=== PATIENT | female | born 1985 | race Caucasian/White ===

== ENCOUNTER 2016-07-19 17:04 | Emergency (ER) | payer SELFPAY ==
[2016-07-19 17:18] VITALS: BMI 22.2
[2016-07-19 17:21] VITALS: TEMP 98.8; O2SAT 99
[2016-07-19 18:04] LABS: URINE BILIRUBIN NEGATIVE (NEGATIVE); URINE BLOOD NEGATIVE (NEGATIVE); URINE GLUCOSE (UA) NEGATIVE (NEGATIVE); URINE KETONE NEGATIVE (NEGATIVE); URINE LEUKOCYTE ESTERASE NEGATIVE Leu/uL (NEGATIVE); URINE PROTEIN NEGATIVE mg/dL (<30 mg/dL); URINE UROBILINOGEN 0.2 E.U./dL (<1 E.U./dL)
[2016-07-19 18:05] LABS: URINE APPEARANCE CLEAR (CLEAR); URINE COLOR STRAW (YELLOW)
--- NOTE | 2016-07-19 18:10 | ED PDOC ---
Arrival/HPI - General Historian: Patient - General Chief Complaint: Abdominal Pain Time Seen by Provider: 07/19/16 17:31 - History of Present Illness Narrative History of Present Illness (Text): 07/19/16 18:04 31yo female who present with complaint of suprapubic abdominal pain. States it was epigastric pain yesterday and then it became suprapubic today. she denies nausea, vomiting, diarreha, constaiption, dysuria, fever, chills, heamturia, any other complaint. (Sarahi Holcomb A) Past Medical History - Provider Review Nursing Documentation Reviewed: Yes - Travel History If Yes, travel location?: [facility] - Past Medical History Past Medical History: No Previous - Psychiatric Hx Substance Use: No - Past Surgical History Past Surgical History: No Previous - Surgical History Hx Section: Yes - Suicidal Assessment Feels Threatened In Home Enviroment: No Family/Social History - Physician Review Nursing Documentation Reviewed: Yes Family/Social History: Unknown Family HX Smoking Status: Never Smoked Hx Alcohol Use: No Hx Substance Use: No Hx Substance Use Treatment: No Allergies/Home Meds Allergies/Adverse Reactions: Allergies No Known Allergies Allergy (Verified 07/19/16 17:21) Home Medications: Home Meds Medication Instructions Recorded Confirmed No Known Home Med 07/19/16 07/19/16 Review of Systems - Physician Review All systems were reviewed & negative as marked: Yes - Review of Systems Constitutional: Normal Eyes: Normal ENT: Normal Respiratory: Normal Cardiovascular: Normal Gastrointestinal: Abdominal Pain. absent: Constipation, Diarrhea, Nausea, Vomiting Genitourinary Female: Normal Musculoskeletal: Normal Skin: Normal Neurological: Normal Endocrine: Normal Hemo/Lymphatic: Normal Psychiatric: Normal Physical Exam Vital Signs Reviewed: Yes Temperature: Afebrile Blood Pressure: Normal Pulse: Regular Respiratory Rate: Normal Appearance: Positive for: Well-Appearing, Non-Toxic, Comfortable Pain Distress: None Mental Status: Positive for: Alert and Oriented X 3 - Systems Exam Head: Present: Atraumatic, Normocephalic Pupils: Present: PERRL Extroacular Muscles: Present: EOMI Conjunctiva: Present: Normal Mouth: Present: Moist Mucous Membranes Neck: Present: Normal Range of Motion Respiratory/Chest: Present: Clear to Auscultation, Good Air Exchange. No: Respiratory Distress, Accessory Muscle Use Cardiovascular: Present: Regular Rate and Rhythm, Normal S1, S2. No: Murmurs Abdomen: Present: Tenderness (Suprapubic tenderness), Normal Bowel Sounds. No: Distention, Peritoneal Signs, Rebound, Guarding, McBurney's Point Tender, Rovsing's Sign Present Back: Present: Normal Inspection Upper Extremity: Present: Normal Inspection. No: Cyanosis, Edema Lower Extremity: Present: Normal Inspection. No: Edema Neurological: Present: GCS=15, CN II-XII Intact, Speech Normal Skin: Present: Warm, Dry, Normal Color. No: Rashes Psychiatric: Present: Alert, Oriented x 3, Normal Insight, Normal Concentration Medical Decision Making ED Course and Treatment: 07/22/16 13:02 Lab was reviewed with mild leukocytosis . Abdominal CT was negative, Result was DW the pt and she was DC home . Referred to a GI. Advised TRT ED for any new or worsening symptoms (Sarahi Holcomb) - Lab Interpretations Lab Results: 07/19/16 18:20 07/19/16 18:20 Lab Results 07/19/16 18:20: Sodium 140, Potassium 3.8, Chloride 102, Carbon Dioxide 27, Anion Gap 15, BUN 9, Creatinine 0.7, Est GFR ( Amer) > 60, Est GFR (Non- Af Amer) > 60, Random Glucose 90, Calcium 9.1, Total Bilirubin 0.6, AST 22, ALT 36, Alkaline Phosphatase 53, Total Protein 7.9, Albumin 4.1, Globulin 3.8, Albumin/Globulin Ratio 1.1, Lipase 143 07/19/16 18:20: PT 10.3, INR 0.95, APTT 29.6 07/19/16 18:20: WBC 12.3 H, RBC 4.13, Hgb 11.9 L, Hct 36.1, MCV 87.4, MCH 28.8, MCHC 33.0, RDW 14.3, Plt Count 313, MPV 9.0, Gran % 65.0, Lymph % (Auto) 27.3, [place] % (Auto) 6.4 H, Eos % (Auto) 1.1 L, Baso % (Auto) 0.2, Gran # 8.01 H, Lymph # 3.4, [place] # 0.8 H, Eos # 0.1, Baso # 0.02 07/19/16 17:54: Urine Color Straw, Urine Appearance Clear, Urine pH 7.0, Ur Specific [place] 1.010, Urine Protein Negative, Urine Glucose (UA) Negative, Urine Ketones Negative, Urine Blood Negative, Urine Nitrate Negative, Urine Bilirubin Negative, Urine Urobilinogen 0.2, Ur Leukocyte Esterase Negative - RAD Interpretation Radiology Orders: 07/19/16 18:56 ABD & PELVIS W/O PO OR IV CONT [CT] Stat - Medication Orders Current Medication Orders: Discontinued Medications Famotidine (Pepcid) 20 mg IVP STAT STA Stop: 07/19/16 18:13 Last Admin: 07/19/16 18:28 Dose: 20 mg Sodium Chloride (Sodium Chloride 0.9%) 1,000 mls @ 1,000 mls/hr IV .Q1H STA Stop: 07/19/16 19:11 Last Admin: 07/19/16 18:28 Dose: 1,000 mls/hr Disposition/Present on Arrival - Present on Arrival Any Indicators Present on Arrival: No History of DVT/PE: No History of Uncontrolled Diabetes: No Urinary Catheter: No History of Decub. Ulcer: No History Surgical Site Infection Following: None - Disposition Have Diagnosis and Disposition been Completed?: Yes Disposition Time: 21:30 Patient Plan: Discharge - Disposition Diagnosis: Abdominal pain Disposition: HOME/ ROUTINE Condition: STABLE Referrals: PCP,NO [Primary Care Provider] - Follow up with primary
[2016-07-19] MEDS ORDERED: Sodium Chloride 0.9% 1,000 ML IV STA (18:12)
[2016-07-19 18:35] LABS: ADD MANUAL DIFF? NO
[2016-07-19 18:46] LABS: ALB/GLOB RATIO 1.1 (1.1-1.8); ALKALINE PHOSPHATASE 53 U/L (38-133); ALT/SGPT 36 U/L (7-56); AST/SGOT 22 U/L (15-39); BILIRUBIN,TOTAL 0.6 mg/dL (0.2-1.3); BLOOD UREA NITROGEN 9 mg/dL (7-21); CALCIUM 9.1 mg/dL (8.4-10.5); CARBON DIOXIDE 27 mmol/L (21-33); CHLORIDE 102 mmol/L (98-107); GFR AFRICAN-AMERICAN > 60; GLUCOSE,RANDOM 90 mg/dL (70-110); LIPASE 143 U/L (23-300); POTASSIUM 3.8 mmol/L (3.6-5.0); SODIUM 140 mmol/L (132-148); TOTAL PROTEIN 7.9 g/dL (5.8-8.3)
[2016-07-19 18:53] LABS: BASO # 0.02 K/mm3 (0.0-2.0); BASO % 0.2 % (0.0-3.0); EOS # 0.1 (0.0-0.7); EOS % 1.1 % (1.5-5.0); GRAN # 8.01 (1.4-6.5); HEMATOCRIT 36.1 % (36.0-48.0); LYMPH # 3.4 (1.2-3.4); LYMPH % 27.3 % (22.0-35.0); MEAN CELL VOLUME 87.4 fL (80.0-105.0); MEAN CORPUSCULAR HEMOGLOBIN 28.8 pg (25.0-35.0); MONO # 0.8 (0.1-0.6); MONO % 6.4 % (1.0-6.0); PLATELET COUNT 313 10^3/uL (120.0-450.0); RED CELL DISTRIBUTION WIDTH 14.3 % (11.5-14.5); WHITE BLOOD COUNT 12.3 10^3/ul (4.5-11.0)
[2016-07-19 19:01] LABS: INR 0.95 (0.93-1.08); PARTIAL THROMBOPLASTIN TIME 29.6 Seconds (23.7-30.8)
--- NOTE | 2016-07-19 19:38 | CT ---
EXAM: CT Abdomen and Pelvis Without Intravenous Contrast CLINICAL HISTORY: 31 years old, female; Pain; Abdominal pain and other: Pelvic; Other: Abd and pelvic pain; Prior surgery; Surgery date: 6+ months; Surgery type: TECHNIQUE: Axial computed tomography images of the abdomen and pelvis without intravenous contrast. This CT exam was performed using one or more of the following dose reduction techniques: automated exposure control, adjustment of the mA and/or kV according to patient size, and/or use of iterative reconstruction technique. Coronal and sagittal reformatted images were created and reviewed. EXAM DATE/TIME: 07/19/2016 6:56 PM COMPARISON: There are no prior studies for comparison. FINDINGS: Artifacts: Motion artifact degrades image quality.Streak artifact degrades image quality. Lower thorax: Heart size is normal. There is a small hiatal hernia. There is minimal dependent atelectasis in the lung bases. ABDOMEN: Liver: unremarkable Gallbladder and bile ducts: unremarkable Pancreas: unremarkable Spleen: unremarkable Adrenals: unremarkable Kidneys and ureters: unremarkable Stomach and bowel: Stomach is almost empty. Rotation is normal. There is no obstruction. Terminal ileum is unremarkable.Appendix is not visualized.There is no pericecal inflammation. There is moderate stool in the colon. Appendix: See above. PELVIS: Bladder: Urinary bladder is unremarkable. Reproductive: Uterus and adnexal structures are unremarkable. ABDOMEN and PELVIS: Intraperitoneal space: There are small to moderate fluid in the pelvis. There is no free air. Bones/joints: There are no acute osseous abnormalities Soft tissues: There is a nonobstructing umbilical hernia containing bowel. Vasculature: There are calcified phleboliths. Vascular structures are unremarkable. Lymph nodes: unremarkable IMPRESSION: Small amount of fluid in the pelvis, physiologic versus recent cyst rupture; no acute solid visceral abnormality; possible constipation; nonvisualization the appendix but no pericecal inflammation
[2016-07-19 20:16] VITALS: BP 120/79; PULSE 80; RESP 16
== END 2016-07-19 20:17 | disposition home or self-care (01) ==
LOC: ED 17:04
DX: R10.9 Unspecified abdominal pain (principal)
CPT/HCPCS: 74176; 80053; 81003; 83690; 85025; 85610; 85730; 96374; 99285; J7040

== ENCOUNTER 2016-12-04 20:47 | Emergency (ER) | payer OTHER ==
[2016-12-04 20:51] VITALS: BMI 22.4
[2016-12-04 20:55] VITALS: TEMP 97.8
[2016-12-04] MEDS ORDERED: Naproxen 550 mg Tab PO STA (22:21)
[2016-12-04] MEDS ORDERED: TDAP Vaccine 0.5 mL Syr IM ONE (22:21)
--- NOTE | 2016-12-04 22:34 | ED PDOC ---
Arrival/HPI - General Chief Complaint: Abnormal Skin Integrity Time Seen by Provider: 12/04/16 21:12 Historian: Patient - History of Present Illness Narrative History of Present Illness (Text): 12/04/16 22:31 A 31 year old female presents to the emergency department complaining of left hand laceration prior to arrival. Patient reports no numbness and no decreased range of motion. Patient denies of any other complaints. Tetanus shot is not up- to-date. No PMD Time/Duration: Prior to Arrival Symptom Onset: Sudden Symptom Course: Unchanged Context: Home Past Medical History - Provider Review Nursing Documentation Reviewed: Yes - Past Medical History Past Medical History: No Previous - Cardiac Hx Cardiac Disorders: No - Pulmonary Hx Respiratory Disorders: No - Neurological Hx Neurological Disorder: No - HEENT Hx HEENT Disorder: No - Renal Hx Renal Disorder: No - Endocrine/Metabolic Hx Endocrine Disorders: No - Hematological/Oncological Hx Blood Disorders: No - Integumentary Hx Dermatological Disorder: No - Musculoskeletal/Rheumatological Hx Musculoskeletal Disorders: No - Gastrointestinal Hx Gastrointestinal Disorders: No - Genitourinary/Gynecological Hx Genitourinary Disorders: No - Psychiatric Hx Psychophysiologic Disorder: No Hx Substance Use: No - Past Surgical History Past Surgical History: No Previous - Surgical History Hx Section: Yes - Anesthesia Hx Anesthesia: Yes - Suicidal Assessment Feels Threatened In Home Enviroment: No Family/Social History - Physician Review Nursing Documentation Reviewed: Yes Family/Social History: No Known Family HX Smoking Status: Never Smoked Hx Alcohol Use: No Hx Substance Use: No Hx Substance Use Treatment: No Allergies/Home Meds Allergies/Adverse Reactions: Allergies No Known Allergies Allergy (Verified 12/04/16 20:51) Home Medications: Home Meds Medication Instructions Recorded Confirmed No Known Home Med 07/19/16 12/04/16 Review of Systems - Physician Review All systems were reviewed & negative as marked: Yes - Review of Systems Musculoskeletal: absent: Other (no decreased ROM ) Skin: Laceration (left hand laceration between 1st and 2nd digit) Neurological: absent: Other (no numbness) Physical Exam Vital Signs Reviewed: Yes Vital Signs Temp Pulse Resp BP Pulse Ox 12/04/16 22:54 61 18 98/72 L 98 12/04/16 20:55 97.8 F 77 19 81/44 L 99 12/04/16 20:51 97.8 F 57 L 20 81/44 L 99 Temperature: Afebrile Blood Pressure: Hypotensive Pulse: Regular Respiratory Rate: Normal Appearance: Positive for: Well-Appearing Pain Distress: None Mental Status: Positive for: Alert and Oriented X 3 - Systems Exam Head: Present: Atraumatic, Normocephalic Pupils: Present: PERRL Extroacular Muscles: Present: EOMI Conjunctiva: Present: Normal Mouth: Present: Moist Mucous Membranes Neck: Present: Normal Range of Motion Back: Present: Normal Inspection Upper Extremity: Present: Normal Inspection, Normal ROM, NORMAL PULSES, Neurovascularly Intact, Capillary Refill < 2s, Other (1 cm laceration to web space between 1st and 2nd digit of left hand). No: Edema, Tenderness, Temperature Abnormalties Lower Extremity: Present: Normal Inspection. No: Edema Neurological: Present: GCS=15, CN II-XII Intact, Speech Normal Skin: Present: Warm, Dry, Normal Color. No: Rashes Psychiatric: Present: Alert, Oriented x 3, Normal Insight, Normal Concentration Medical Decision Making ED Course and Treatment: 12/04/16 22:36 Impression: 31 year old female with laceration. Physical exam shows 1 cm laceration to web space between 1st and 2nd digits of left hand. Plan: -- Naproxen -- Boostrix Vaccine -- Reassess and disposition Prior Visits: Notes and results from previous visits were reviewed. Patient was last seen in the emergency department on 07/19/2016 for suprapubic abdominal pain. Patient was discharged home. - Medication Orders Current Medication Orders: Discontinued Medications Naproxen (Anaprox Ds) 550 mg PO ONCE STA Stop: 12/04/16 22:22 Last Admin: 12/04/16 22:47 Dose: 550 mg Tetanus/Reduced Diphtheria/Acell Pertussis (Boostrix Vaccine Inj) 0.5 ml IM .ONCE ONE Stop: 12/04/16 22:22 Last Admin: 12/04/16 22:47 Dose: 0.5 ml [facility] Immunization Data Document 12/04/16 22:47 GMD (Rec: 12/04/16 22:48 GMD [id number]) Immunization Data Vaccine Lot Number [id number] Procedure: Wound Repair - Time Performed Time Performed: 22:21 - Time Out Time Out: Side verified, Site verified, Patient ID confirmed - Procedure Procedure: Wound Repair: L hand - Consent Obtained Consent obtained: Verbal - Performed by Performed by: Mid-level Provider (JESSIE Lara) - Indications Indication(s):: Laceration - Location Location:: Left, Hand Shape:: Linear Dimensions Length cm: 1 cm Depth:: Epidermis - Complexity Complexity:: Simple (one layer) - Wound repair method [place]:: Tissue glue (dermabond) - Complications Complications: none - Patient tolerated procedure Patient Tolerated Procedure:: Well - PA / INSURANCE COMPLIANCE ANALYST / Resident Statement MD/DO has reviewed & agrees with the documentation as recorded. - Scribe Statement The provider has reviewed the documentation as recorded by the Scribe Lelia Camejo Provider Scribe Attestation: All medical record entries made by the Scribe were at my direction and personally dictated by me. I have reviewed the chart and agree that the record accurately reflects my personal performance of the history, physical exam, medical decision making, and the department course for this patient. I have also personally directed, reviewed, and agree with the discharge instructions and disposition. Disposition/Present on Arrival - Present on Arrival Any Indicators Present on Arrival: No History of DVT/PE: No History of Uncontrolled Diabetes: No Urinary Catheter: No History of Decub. Ulcer: No History Surgical Site Infection Following: None - Disposition Have Diagnosis and Disposition been Completed?: Yes Diagnosis: Laceration of hand Disposition: HOME/ ROUTINE Disposition Time: 22:30 Patient Plan: Discharge Condition: STABLE Discharge Instructions (ExitCare): Laceration (ED) Print Language: SYRIAC Additional Instructions: Thank you for letting us take care of you today. You were treated for hand laceration. The emergency medical care you received today was directed at your acute symptoms. Keep wound dry and clean. It may take several days for your symptoms to resolve. Return to the Emergency Department if your symptoms worsen , do not improve, or if you have any other problems. Please contact your doctor in 2 days for re-evaluation and follow up / or call one of the physicians/clinics you have been referred to that are listed on the Patient Visit Information form that is included in your discharge packet. Bring any paperwork you were given at discharge with you along with any medications you are taking to your follow up visit. Our treatment cannot replace ongoing medical care by a primary care provider (PCP) outside of the emergency department. Thank you for allowing the [facility] team to be part of your care today. Referrals: [facility] [Outside] - Follow up with primary [employer], [Primary Care Provider] - Follow up with primary Forms: Emailage ([employer]ight), WORK NOTE
[2016-12-04 22:55] VITALS: BP 98/72; PULSE 61; RESP 18; O2SAT 98
== END 2016-12-04 23:00 | disposition home or self-care (01) ==
LOC: ED 20:47
DX: S61.412A Laceration without foreign body of left hand, initial encounter (principal); X58.XXXA Exposure to other specified factors, initial encounter; Z23 Encounter for immunization

== ENCOUNTER 2018-07-25 14:03 | Outpatient (CLI) | payer OTHER | END 2018-07-25 14:04 | disposition home or self-care (01) | LOC: RAD 14:03 | DX: N64.4 Mastodynia (principal) ==